=== PATIENT | female | born 1985 | race Hispanic/Latino ===

== ENCOUNTER 2018-01-10 08:43 | Inpatient (IN) | payer MEDICAID ==
[~2018-01-10] VITALS: Ht 157.5 cm; Wt 75.7 kg
[2018-01-10] MEDS ORDERED: LACTATED RINGERS 1000ML 1,000 ML IV PRN (08:59)
[2018-01-10 09:21] LABS: APPEARANCE,URINE Clear (CLEAR); BILIRUBIN,URINE Small (NEGATIVE); COLOR,URINE Dark Yellow (YELLOW); GLUCOSE, URINE (UA) Negative (NEGATIVE); KETONES,URINE 15 mg/dL (NEGATIVE); LEUKOCYTE ESTERASE ,URINE Negative (NEGATIVE); NITRATE,URINE Negative (NEGATIVE); OCCULT BLOOD,URINE Negative (NEGATIVE); PH,URINE 5.5 (5.0-8.0); PROTEIN,URINE Trace (NEGATIVE)
[2018-01-10 09:28] LABS: BACTERIA,URINE Rare /HPF (None Seen); RBC,URINE 0-1 /HPF (0-1); SQUAMOUS EPITHELIAL CELL,UR Rare /HPF (0-2); WBC,URINE 0-1 /HPF (0-1)
[2018-01-10 09:45] LABS: HEMATOCRIT 32.8 % (36-48); MEAN CORPUSCULAR HEMOGLOBIN 30.8 pg (27.0-33.0); MEAN CORPUSCULAR HGB CONC 34.3 g/dL (32.0-36.0); MEAN CORPUSCULAR VOLUME 89.8 fL (79-99); PLATELET COUNT (AUTO) 189 K/uL (130-400); RED BLOOD CELL COUNT(AUTO) 3.66 MIL/uL (4.00-5.50); RED CELL DISTRIBUTION WIDTH 13.8 % (11.0-15.5); WHITE BLOOD COUNT (AUTO) 10.5 K/uL (4.8-10.8)
[2018-01-10] MEDS ORDERED: MEPERIDINE-PF 50 MG/ML SYG IVP ONE (10:15)
[2018-01-10] MEDS ORDERED: PROMETHAZINE HCL 25 MG/ML 1ML AMPULE IM SCH (10:15)
[2018-01-10] MEDS ORDERED: OXYTOCIN-LR 20 UNITS/1000 ML 1,000 ML IV SCH ×2 (10:15→13:00)
[2018-01-10] MEDS ORDERED: LACTATED RINGERS 1000ML 2,000 ML IV ONE (10:17)
[2018-01-10] MEDS ORDERED: OXYTOCIN 10 USP UNITS/ML ONE ×2 (10:17→13:42)
[2018-01-10] MEDS ORDERED: LIDOCAINE HCL 1% 20 ML VIAL ONE (11:52)
[2018-01-10] MEDS ORDERED: BENZOCAINE/LANOLIN/ALOE VERA 60 ML AEROSOL TP PRN (13:00)
[2018-01-10] MEDS ORDERED: ACETAMINOPHEN 325 MG TAB PO PRN (13:00)
[2018-01-10] MEDS ORDERED: LANOLIN 30GM OINTMENT TP PRN (13:00)
[2018-01-10] MEDS ORDERED: WITCH HAZEL 1 PAD TP PRN (13:00)
[2018-01-10] MEDS ORDERED: MEASLES/MUMPS/RUBELLA VACCINE, LIVE 0.5 ML/VIAL SQ PRN (13:00)
[2018-01-10] MEDS ORDERED: DIPH,PERTUSS(ACELL),TET VAC/PF 0.5 ML VIAL IM PRN (13:00)
[2018-01-10] MEDS ORDERED: LACTATED RINGERS 1000ML 1,000 ML IV ONE (13:41)
[2018-01-10 14:22] VITALS: BP 114/77
[2018-01-10 15:17] VITALS: BP 115/72
[2018-01-10 19:21] VITALS: BP 113/71
[2018-01-10] MEDS: DOCUSATE SODIUM 100 MG CAP PO SCH (20:25)
[2018-01-10] MEDS: IBUPROFEN 600 MG TABLET PO PRN (20:26)
[2018-01-10 23:11] VITALS: BP 106/73
[2018-01-11 03:21] VITALS: BP 104/71
[2018-01-11 05:15] LABS: HEMATOCRIT 29.6 % (36-48); MEAN CORPUSCULAR HEMOGLOBIN 29.7 pg (27.0-33.0); MEAN CORPUSCULAR HGB CONC 33.3 g/dL (32.0-36.0); MEAN CORPUSCULAR VOLUME 89.2 fL (79-99); PLATELET COUNT (AUTO) 139 K/uL (130-400); RED BLOOD CELL COUNT(AUTO) 3.32 MIL/uL (4.00-5.50); WHITE BLOOD COUNT (AUTO) 12.6 K/uL (4.8-10.8)
[2018-01-11 07:22] VITALS: BP 113/76
[2018-01-11 08:19] LABS: HEPATITIS Bs ANTIGEN SCREEN P Negative (Negative)
[2018-01-11] MEDS: DOCUSATE SODIUM 100 MG CAP PO SCH (08:35)
[2018-01-11] MEDS: IBUPROFEN 600 MG TABLET PO PRN (08:37)
[2018-01-11 11:29] VITALS: BP 100/65
== END 2018-01-11 13:35 | disposition home or self-care (01) | DRG 560 ==
LOC: LDH 08:43 → OBSVTOIN 08:43 → WSH 14:23 → EDSTATUS 01-17 08:41
PROVIDERS: ADMIT Specialist; ATTEND Specialist
PROC: 10E0XZZ Delivery of Products of Conception, External Approach (ICD-10-PCS; principal; 2018-01-10)
PROC: 0KQM0ZZ Repair Perineum Muscle, Open Approach (ICD-10-PCS; 2018-01-10)
PROC: 10907ZC Drainage of Amniotic Fluid, Therapeutic from Products of Conception, Via Natural or Artificial Opening (ICD-10-PCS; 2018-01-10)
PROC: 0W8NXZZ Division of Female Perineum, External Approach (ICD-10-PCS; 2018-01-10)
DX: O70.1 Second degree perineal laceration during delivery (principal); Z37.0 Single live birth; Z3A.38 38 weeks gestation of pregnancy
CPT/HCPCS: 36415; 81001; 85027; 86592; 86850; 86900; 86901; 87340; A4351; J2175; J2550; J2590; J7120